=== PATIENT | female | born 1990 | race Caucasian/White ===

== ENCOUNTER 2017-09-28 15:38 | Emergency (ER) | payer SELFPAY ==
--- NOTE | 2017-09-28 16:15 | ER ---
Nurse's Notes [facility] Name: Maldonado De Jesus Age: 27 yrs Sex: Female : 1990 Arrival Date: 09/28/2017 Time: 15:42 Bed Waiting Private MD: Avinash, None Diagnosis: ED Course: 09/28 15:42 Patient arrived in ED. mr 15:42 None, None is Private Physician. mr 15:50 Patient's name was called from ER lobby. No response. aj 16:04 Patient's name was called from ER lobby. No response. aj 16:09 [facility] kamarcel 16:09 Anjum Baron MD is Attending Physician. kamarcel 16:10 Patient's name was called from ER lobby. No response. Unable to locate patient. Will aj disposition as left without being seen by a provider. Administered Medications: No medications were administered Outcome: 16:14 Eloped from waiting room, before seeing physician aj 16:14 Patient left the ED. aj Signatures: Annette Heller, RN RN Jennifer Ruff FNP FNP kav Rivera, Maria mr
--- NOTE | 2017-09-28 16:15 | EDPHYS ---
Physician Documentation [facility] Name: Maldonado De Jesus Age: 27 yrs Sex: Female : 1990 Arrival Date: 09/28/2017 Time: 15:42 Bed Waiting Private MD: None, None ED Physician Anjum Baron HPI: 09/28 16:09 This 27 yrs old Female presents to ER via Unassigned with complaints of Sore kav Throat, Fever. Administered Medications: No medications were administered Disposition: 16:25 Co-signature as Attending Physician, Anjum Baron MD. rn Disposition: 09/28/17 16:14 Patient left the facility Before Triage. - Patient left due to unknown. Signatures: Annette Heller, RN Jennifer Pena, MACHINE FEEDER FLOORPERSON MACHINE FEEDER FLOORPERSON Anjum Bocanegra MD MD rn
== END 2017-09-28 16:14 | disposition left against medical advice (07) ==
LOC: ER 15:38
DX: Z53.21 Procedure and treatment not carried out due to patient leaving prior to being seen by health care provider (principal)